=== PATIENT | female | born 1995 | race Caucasian/White ===

== ENCOUNTER 2017-04-05 15:21 | Emergency (ER) | payer SELFPAY ==
[~2017-04-05] VITALS: Ht 160 cm; Wt 69.0 kg
[~2017-04-05 15:21] MED LIST: DEXT15TA PO; SERT100 PO; TYLE3 PO; Z.0.BCPILL PO
[2017-04-05 15:30] VITALS: BP 183/99; PULSE 80; RESP 16; TEMP 98.2; O2SAT 100
[2017-04-05] MEDS ORDERED: BIRTH CONTROL PILLS (15:34)
[2017-04-05] MEDS ORDERED: ALPR.5 PO (15:39)
--- NOTE | 2017-04-05 16:21 | RADRPT ---
EXAM DATE/TIME: 04/05/2017 15:45 [place] COMPARISON: No previous studies available for comparison. INDICATIONS : Left foot, great toe pain after keg fell on foot. MEDICAL HISTORY : None. SURGICAL HISTORY : None. ENCOUNTER: Initial ACUITY: 1 day PAIN SCORE: 10/10 LOCATION: Left foot, great toe. FINDINGS: Three view examination of the left foot demonstrates no soft tissue swelling, dislocation, or fractur e. The tarsal bones appear intact. The interphalangeal and metatarsophalangeal joints are intact. The calcaneus is intact. Bony mineralization is normal. CONCLUSION: Unremarkable examination of the left foot. Alonzo Hawthorne MD on April 05, 2017 at 16:19 Board Certified Radiologist. This report was verified electronically.
--- NOTE | 2017-04-05 16:39 | PD ---
HPI Chief Complaint: Musculoskeletal Complaint Time Seen by Provider: 15:38 Travel History International Travel<30 days: No Contact w/Intl Traveler<30days: No Traveled to known affect area: No History of Present Illness HPI 21-year-old female presents emergency department for evaluation of left foot pain after a keg fell onto the left great toe while at work prior to arrival. Patient reports pain within the great toe and first metatarsal. The pain is worse with movement of the toe and weightbearing. Relieved with rest. She denies numbness/weakness/tingling in the extremity. No other injury. Symptom severity is mild. PFSH Past Medical History ADHD: Yes Anxiety: Yes Depression: Yes Diminished Hearing: No Immunizations Current: Yes Influenza Vaccination: No ?: Not Social History Alcohol Use: Yes (2 days/week) Tobacco Use: Yes (2 days/week) Substance Use: No Allergies-Medications (Allergen,Severity, Reaction): Coded Allergies: No Known Allergies (Verified , 04/10/11) Reported Meds & Prescriptions Reported Meds & Active Scripts Active Reported Xanax (Alprazolam) 0.5 Mg Tab 0.5 Mg PO Q6H PRN [ Control Pills] Review of Systems Except as stated in HPI: all other systems reviewed are Neg Physical Exam Narrative GENERAL: Well-nourished, well-developed patient. SKIN: Focused skin assessment warm/dry. HEAD: Normocephalic. EYES: No scleral icterus. No injection or drainage. MUSCULOSKELETAL: No cyanosis, or edema. Tenderness to the left great toe and first metatarsal. No swelling or ecchymosis. No nail injury. 2+ dorsal pedis pulses. Extremity is warm. Neurovascularly intact. Data Data Last Documented VS Vital Signs Date Time Temp Pulse Resp B/P (MAP) Pulse Ox O2 Delivery O2 Flow Rate FiO2 04/05/17 15:30 98.2 80 16 183/99 (127) 100 Orders Orders Foot, Complete ([id number]) (04/05/17 ) [facility] Medical Decision Making Medical Screen Exam Complete: Yes Emergency Medical Condition: Yes Differential Diagnosis Toe fracture, contusion, metatarsal fracture Narrative Course 21-year-old female chief complaint of left foot pain status post KEG falling onto the foot prior to arrival. On exam there is no ecchymosis or swelling. No nail bed injury. The extremity is neurovascularly intact. X-rays negative for fracture. Patient be treated for contusion. Diagnosis Primary Impression: Contusion of left foot Qualified Codes: S90.32XA - Contusion of left foot, initial encounter Referrals: [facility] Additional Instructions: Take [id number] Motrin 600 mg every 6-8 hours as needed for pain. Ice and elevate the extremity. Follow-up with her primary doctor for recheck. Disposition: 01 DISCHARGE HOME Condition: Stable Unique Herrera Apr 05, 2017 16:39
[2017-04-05] MEDS ORDERED: IBUPROFEN 800 MG TAB PO ONE (16:45)
== END 2017-04-05 16:51 | disposition home or self-care (01) ==
LOC: PHEFT 15:21
DX: S90.32XA Contusion of left foot, initial encounter (principal); W22.8XXA Striking against or struck by other objects, initial encounter; Y99.0 Civilian activity done for income or pay; F17.200 Nicotine dependence, unspecified, uncomplicated; F32.9 Major depressive disorder, single episode, unspecified; F41.9 Anxiety disorder, unspecified; Z79.899 Other long term (current) drug therapy
CPT/HCPCS: 73630; 99283